=== PATIENT | male | born 1960 | race Caucasian/White ===

== ENCOUNTER → 2021-02-21 | Day surgery (SDC) | payer BC ==
[~2021-02-21] MED LIST: AMLODIPINE BESY10 MG PO; BUPIVACAINE 0.25% 30ML SDV ONE; IBUPROFEN600 MG PO; IRBESARTAN150 MG PO; LIDOCAINE 1% W/EPINEPHRINE 20 ML VIAL ONE; SODIUM CHLORIDE 0.9% 50ML 100 ML ONE
[2021-02-21 10:05] VITALS: BP 143/92
== END | disposition home or self-care (01) ==
LOC: OR 07:17
PROVIDERS: ATTEND Orthopaedic Surgery
DX: S83.242A Other tear of medial meniscus, current injury, left knee, initial encounter (principal); S83.282A Other tear of lateral meniscus, current injury, left knee, initial encounter; M23.42 Loose body in knee, left knee; M22.42 Chondromalacia patellae, left knee; M67.52 Plica syndrome, left knee; I10 Essential (primary) hypertension; F41.9 Anxiety disorder, unspecified; X58.XXXA Exposure to other specified factors, initial encounter; Z01.810 Encounter for preprocedural cardiovascular examination; Z01.812 Encounter for preprocedural laboratory examination; Z20.822 Contact with and (suspected) exposure to COVID-19
CPT/HCPCS: 29879; 29880; 93005; J0690; U0002